=== PATIENT | male | born 1940 | race African-American/Black ===

== ENCOUNTER 2019-05-29 07:39 | Emergency (ER) | payer MEDICARE ==
[~2019-05-29] VITALS: Ht 185.4 cm; Wt 113.4 kg
[2019-05-29 07:49] VITALS: BP 181/72
[2019-05-29] MEDS ORDERED: DEXAMETHASONE 4 MG TABLET PO ONE (08:00)
[2019-05-29] MEDS ORDERED: NAPR-695 PO (08:19)
--- NOTE | 2019-05-29 08:19 | PHYS DOC ---
Past Medical History Past Medical History: Hypertension Past Surgical History: No Surgical History Smoking: Cigarettes Alcohol Use: None Drug Use: None Adult General Chief Complaint Chief Complaint: KNEE INJURY HPI HPI 78-year-old male presents with report of left knee pain and swelling after mechanical slip and fall down some steps on Monday. Patient reports he felt like his "knee gave out". Denies other injury. Repots some swelling to area. Reports now with difficulty fully straightening his knee due to swelling. Denies current pain. Denies problems with his knee in past. Review of Systems Review of Systems Constitutional: Denies fever or chills Eyes: Denies redness or eye pain HENT: Denies nasal congestion or sore throat Respiratory: Denies cough or shortness of breath Cardiovascular: Denies chest pain or palpitations GI: Denies abdominal pain, nausea, or vomiting : Denies dysuria or hematuria Musculoskeletal: Reports left knee pain and swelling Integument: Reports bruising of left knee; denies laceration Neurologic: Denies headache, focal weakness or sensory changes Complete systems were reviewed and found to be within normal limits, except as documented in this note. Current Medications Current Medications Current Medications Medications (Trade) Dose Ordered Sig/Carlitos Start Time Stop Time Status Last Admin Dose Admin Dexamethasone (Decadron) 10 mg 1X ONCE 05/29/19 08:00 05/29/19 08:09 DC 05/29/19 08:15 10 MG Allergies Allergies Allergies Coded Allergies Type Severity Reaction Last Updated Verified No Known Drug Allergies 05/29/19 No Physical Exam Physical Exam Constitutional: Well developed, well nourished, no acute distress, non-toxic appearance HENT: Normocephalic, atraumatic Eyes: Conjunctiva normal, no discharge Neck: Normal range of motion, no tenderness, supple Cardiovascular: left PT +2 Lungs & Thorax: No respiratory distress, no chest wall trauma Skin: Warm, dry, mild ecchymosis to left knee Extremities: Left knee without deformity, mild swelling noted anteriorly, joint stable, ROM intact, reports some pain with full extension to tibial plateau Neurologic: Alert and oriented X 3, no focal deficits noted Psychologic: Affect normal, judgement normal Current Patient Data Vital Signs Vital Signs Date Time Temp Pulse Resp B/P (MAP) Pulse Ox O2 Delivery O2 Flow Rate FiO2 05/29/19 07:49 99.0 58 20 181/72 (108) 97 Room Air 99.0 EKG EKG [] Radiology/Procedures Radiology/Procedures PROCEDURE: KNEE LEFT 3V Three-view left knee radiographs 05/29/2019 CLINICAL HISTORY: Patient recently fell down the stairs with left knee pain. AP, oblique and lateral digital radiographs of the left knee were obtained. No fracture or dislocation of the left knee is seen. Mild to moderate degenerative changes are seen involving all 3 compartments of the left knee. Atherosclerotic calcification of the left popliteal artery and its branches is noted. IMPRESSION: No fracture or dislocation of the left knee is seen. Electronically signed by: Db Peacock MD (05/29/2019 8:34 AM) [facility] Course & Med Decision Making Course & Med Decision Making Pertinent Imaging studies reviewed. (See chart for details) Patient presents with report of left knee giving out with subsequent fall down some steps 3 days ago. Patient with some stiffness and difficulty moving due to swelling and bruising. Denies other injury. Joint appears stable. Swelling noted and some pain with full extension. PO steroid provided for inflammation. XR without acute fracture/dislocation. Signs of arthritis and joint bodies noted. ICE applied. Doron bandage applied. Crutches with training provided. Patient stable for discharge with outpatient follow-up with PCP/orthopedics. Orthopedic referral provided. Discussed findings and plan with patient and family, who acknowledge understanding and agreement. Dragon Disclaimer Dragon Disclaimer This electronic medical record was generated, in whole or in part, using a voice recognition dictation system. Splinting Splinting : Location: Left knee Pre-Made Type: DORON bandage Pre-Proc Neuro Vasc Exam: normal Post-Proc Neuro Vasc Exam: normal, unchanged from pre-exam Departure Departure Impression: Primary Impression: Knee pain Additional Impression: Knee contusion Disposition: HOME, SELF-CARE Condition: STABLE Referrals: KAREN ZIMMERMAN (PCP) ZAYNAB GAN MD Patient Instructions: Contusion, [id number], Crutch Use, Mwak-kv-Hoaw, Knee Pain, Nqoy-oq-Vavr Scripts Naproxen (NAPROXEN) 375 Mg Tablet 1 TAB PO TID PRN for PAIN, #20 TAB Prov: NIKKO SCOTT 05/29/19 Problem Qualifiers Primary Impression: Knee pain Chronicity: acute Laterality: left Qualified Codes: M25.562 - Pain in left knee Additional Impression: Knee contusion Encounter type: initial encounter Laterality: left Qualified Codes: S80.02XA - Contusion of left knee, initial encounter NIKKO SCOTT DO May 29, 2019 08:19
--- NOTE | 2019-05-29 08:37 | RAD ---
Three-view left knee radiographs 05/29/2019 CLINICAL HISTORY: Patient recently fell down the stairs with left knee pain. AP, oblique and lateral digital radiographs of the left knee were obtained. No fracture or dislocation of the left knee is seen. Mild to moderate degenerative changes are seen involving all 3 compartments of the left knee. Atherosclerotic calcification of the left popliteal artery and its branches is noted. IMPRESSION: No fracture or dislocation of the left knee is seen. Electronically signed by: Db Peacock MD (05/29/2019 8:34 AM) [place] [id number]
== END 2019-05-29 08:55 | disposition home or self-care (01) ==
LOC: ER 07:39
DX: S80.02XA Contusion of left knee, initial encounter (principal); I10 Essential (primary) hypertension; F17.210 Nicotine dependence, cigarettes, uncomplicated; W10.8XXA Fall (on) (from) other stairs and steps, initial encounter; Y93.89 Activity, other specified; Y92.89 Other specified places as the place of occurrence of the external cause; Y99.8 Other external cause status
CPT/HCPCS: 73562; 99284; J8540

== ENCOUNTER → 2019-06-17 | Outpatient (CLI) | payer MEDICARE ==
[2019-05-29 07:49] VITALS: BP 181/72
[~2019-06-17] MED LIST: NAPR-695 PO
--- NOTE | 2019-06-17 12:03 | RAD ---
EXAM: Left lower extremity venous Doppler sonogram. HISTORY: Pain and swelling. TECHNIQUE: Yeager scale and color Doppler sonographic evaluation of the left lower extremity veins with spectral waveform analysis was performed. FINDINGS: There is normal color flow, normal compressibility and there are normal spectral waveforms in the common femoral, superficial femoral, popliteal, posterior tibial and greater saphenous veins. IMPRESSION: No Doppler evidence of lower extremity deep venous thrombosis. Electronically signed by: Eufemia Mar MD (06/17/2019 12:01 PM) [place] [id number]
== END | disposition home or self-care (01) ==
LOC: US 10:47
PROVIDERS: ATTEND Orthopaedic Surgery
DX: M25.562 Pain in left knee (principal)
CPT/HCPCS: 93971

== ENCOUNTER → 2021-02-10 | Outpatient (CLI) | payer MEDICARE, BC ==
[~2021-02-10] MED LIST changes: +IOHEXOL 240 MG/ML 50ML VIAL. PO ONE; +IOHEXOL 300 MG/ML 100ML VIAL. IV ONE
[2021-02-10 10:52] LABS: CREATININE 0.9 mg/dL (0.7-1.3); GFR 98.5
--- NOTE | 2021-02-10 15:44 | RAD ---
US ABDOMEN LTD History: Reason: RUQ ABD PAIN / Spl. Instructions: / History: Comparison: None. Technique: Transabdominal ultrasound images are obtained of the right upper quadrant. Findings: Liver is normal in echogenicity. Right hepatic lobe measures 17.5 cm. Portal flow is hepatopedal. Gallbladder has an unremarkable appearance. Common bile duct measures 3.2 mm in diameter. Visualized pancreas not well seen due to overlying bowel gas. The right kidney measures 12.1 x 5.2 x 5.2 cm. No hydronephrosis. Small cyst measures 1.3 cm. Aorta and IVC not well seen due to overlying bowel gas. IMPRESSION: 1. Degraded evaluation, as described. 2. Otherwise, unremarkable right upper quadrant ultrasound. Electronically signed by: Shantanu Rodriguez DO (02/10/2021 3:42 PM) [id number]
--- NOTE | 2021-02-10 15:55 | RAD ---
CT ABDOMEN+PELVIS W History: Reason: right groin pain, elev PSA / Spl. Instructions: omni 300 75ml omni 240 50ml / Histo ry: Technique: After the administration of intravenous contrast, CT imaging was performed of the abdomen and pelvis. Multiplanar images are reviewed. Exposure: One or more of the following individualized dose reduction techniques were utilized for thi s examination: 1. Automated exposure control 2. Adjustment of the mA and/or kV according to patient size 3. Use of iterative reconstruction technique. Comparison: None Findings: Lower chest: Calcified right lower lobe pulmonary nodule, likely prior granulomatous disease. Abdomen and pelvis: Right hepatic lobe hypodensity with peripheral discontinuous nodular enhancement measures 1.1 x 1.2 cm. Additional small right inferior hepatic lobe hypodensities, too small to furth er characterize. The spleen, pancreas and gallbladder are unremarkable. No biliary ductal dilatation. Bilateral indeterminate adrenal nodules on the right measures 2.0 x 1.7 cm and on the left measures 2 .5 x 2.6 cm. Solid left inferior renal mass measures 2.1 x 2.5 cm. Additional small anterior renal hypodensity, to o small to further characterize. No hydronephrosis. Colonic diverticulosis. Normal appendix. No evidence of bowel obstruction. Oral contrast opacifies to the level of the cecum. No pathologic lymphadenopathy. No ascites. Bilateral fat-containing inguinal hernias. Enlarged heterogeneous nodular prostate protruding against the urinary bladder measures 5.7 x 5.9 x 7 .7 cm. Mild urinary bladder wall thickening. Small urinary bladder diverticula. Mild atheromatous arcelia que throughout the nonaneurysmal abdominal aorta and branch vessels. Bones: Multilevel lumbar spondylosis most prominent L3-L4 and L5-S1. Grade 1 anterolisthesis L4 on L5 . Mild retrolisthesis L5 on S1. Impression: 1. Solid left mid renal mass, concerning for malignancy. Recommend renal protocol MRI or CT to [facility] assess including without phase to evaluate the adrenal glands. 2. Bilateral indeterminate adrenal nodules. Recommend attention on follow-up imaging. 3. Enlarged heterogeneous prostate. 4. Mild urinary bladder wall thickening, likely related to chronic outlet obstruction. 5. Small right anterior hepatic lesions, favor hemangioma. Additional smaller right hepatic lobe les ions too small to further characterize. Electronically signed by: Shantanu Rodriguez DO (02/10/2021 3:53 PM) [id number]
== END ==
LOC: US 15:42
PROVIDERS: ATTEND Internal Medicine
DX: N40.0 Benign prostatic hyperplasia without lower urinary tract symptoms (principal); N28.89 Other specified disorders of kidney and ureter; R91.1 Solitary pulmonary nodule; R97.20 Elevated prostate specific antigen [PSA]; M47.816 Spondylosis without myelopathy or radiculopathy, lumbar region; M43.17 Spondylolisthesis, lumbosacral region; K76.9 Liver disease, unspecified
CPT/HCPCS: 36415; 74177; 76705; 82565; 84520; Q9966; Q9967